=== PATIENT | male | born 1960 | race Two or more races ===

== ENCOUNTER 2024-12-17 15:17 | Emergency (ER) | payer OTHER, MEDICAID ==
[~2024-12-17] VITALS: Ht 180.3 cm; Wt 126.0 kg
--- NOTE | 2024-12-17 15:22 | ED.PDOC ---
HPI Allergic reaction HPI Comments 64 year old male presents to the ED with a chief complaint of allergic reaction onset today. Patient took his Enalapril medication around 08:30, had breakfast and went to sleep. He woke up around 12:00, noticed facial swelling as well as lips and tongue. Since 12:00, patient noticed swelling has worsen, came to ED. Denies chest pain,shortness of breath, dizziness,fever, chills, cough, congestion, nausea, vomiting. No other symptoms or modifying factors present at this time. Chief Complaint: Allergic Reaction Time Seen by MD: 15:20 Reviewed Notes: Medications, Allergies Allergies: Coded Allergies: Penicillins (Verified Allergy, Severe, 12/17/24) Information Source: Patient Mode of Arrival: Ambulatory Severity: Moderate Timing: Hours Duration: Since onset Prehospital treatment: None Location: Face, Lips, Tongue Exposed to: Medication Developed: Facial Swelling Family History Family History: Reviewed,noncontributory to illness, No family hx of Cancer, No family hx of DM, No family hx of Heart pedro, No family hx of HTN, No family hx ofKidney pedro, No family hx of Liver pedro, No family hx of Lung pedro, No family hx of Stroke Social History Smoker: Non-Smoker Alcohol: Denies ETOH Use Drugs: Denies Drug Use Lives In: Home Constitutional: denies: chills, diaphoresis, fatigue, fever, malaise, sweats, weakness, others EENTM: reports: mouth swelling; denies: blurred vision, double vision, ear bleeding, ear discharge, ear drainage, ear pain, ear ringing, eye pain, eye redness, hearing loss, mouth pain, nasal discharge, nose bleeding, nose congestion, nose pain, photophobia, tearing, throat pain, throat swelling, voice changes, others Respiratory: denies: cough, hemoptysis, orthopnea, SOB at rest, shortness of breath, SOB with excertion, stridor, wheezing, others Cardiovascular: denies: chest pain, dizzy spells, diaphoresis, Dyspnea on exertion, edema, irregular heart beat, left arm pain, lightheadedness, palpitations, PND, syncope, others Gastrointestinal: denies: abdomen distended, abdominal pain, blood streaked bowels, constipated, diarrhea, dysphagia, difficulty swallowing, hematemesis, melena, nausea, poor appetite, poor fluid intake, rectal bleeding, rectal pain, vomiting, others Genitourinary: denies: burning, dysuria, flank pain, frequency, hematuria, incontinence, penile discharge, penile sore, pain, testicle pain, testicle swelling, urgency, others Neurological: denies: dizziness, fainting, headache, left sided numbness, left sided weakness, numbness, paresthesia, pre-existing deficit, right sided numbness, right sided weakness, seizure, speech problems, tingling, tremors, weakness, others Musculoskeletal: denies: back pain, gout, joint pain, joint swelling, muscle pain, muscle stiffness, neck pain, others Integumetry: denies: bruises, change in color, change in hair/nails, dryness, laceration, lesions, lumps, rash, wounds, others Allergic/Immunocompromised: denies: Difficulty Healing, Frequent Infections, Hives, Itching, others Hematologic/Lymphatic: denies: anemia, blood clots, easy bleeding, easy bruising, swollen glands, others Endocrine: denies: excessive hunger, excessive sweating, excessive thirst, excessive urination, flushing, intolerance to cold, intolerance to heat, unexplained weight gain, unexplained weight loss, others Psychiatric: denies: anxiety, bipolar disorder, depression, hopeless, panic disorder, schizophrenia, sleepless, suicidal, others All Other Systems: Reviewed and Negative Physical Exam General Appearance: Normal HEENT: Normal ENT Inspection, Pharynx Normal, TMs Normal Neck: Full Range of Motion, Non-Tender, Normal, Normal Inspection Respiratory: Chest Non-Tender, Lungs Clear, No Accessory Muscle Use, No Respiratory Distress, Normal Breath Sounds Cardiovascular: No Edema, No JVD, No Murmur, No Gallop, Normal Peripheral Pulses, Regular Rate/Rhythm Breast Exam: Deferred Gastrointestinal: No Organomegaly, Non Tender, No Pulsatile Mass, Normal Bowel Sounds, Soft Genitalia: Deferred Pelvic: Deferred Rectal: Deferred Extremities: No calf tenderness, Normal capillary refill, Normal inspection, Normal range of motion, Non-tender, No pedal edema Musculoskeletal : Apperance: Normal Neurologic: Alert, 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 Was a procedure done?: No Differential diagnosis (all) Differential Diagnosis: Angioedema, Hypotension X-Ray, Labs, Meds, VS Vital Signs Date Time Temp Pulse Resp B/P (MAP) Pulse Ox O2 Delivery O2 Flow Rate FiO2 12/17/24 17:36 97.7 64 20 143/84 (103) 92 97.7 12/17/24 15:34 89 20 96 Room Air* 0 21 12/17/24 15:18 98.0 90 20 124/94 92 98.0 Current Medications Medications (Trade) Dose Ordered Sig/Star Route Start Time Stop Time Status Last Admin Methylprednisolone Sodium Succinate (Solu Medrol) 125 mg ONCE ONCE IV 12/17/24 15:30 12/17/24 15:31 DC 12/17/24 15:33 Famotidine (Pepcid Injection) 20 mg ONCE ONCE IV 12/17/24 15:30 12/17/24 15:31 DC 12/17/24 15:33 Diphenhydramine HCl (Benadryl Injection) 50 mg ONCE ONCE IV 12/17/24 15:30 12/17/24 15:31 DC 12/17/24 15:33 Sodium Chloride 1,000 ml @ 1,000 mls/hr Q1H ONCE IV 12/17/24 15:30 12/17/24 16:29 DC 12/17/24 15:34 Time of 1ST Reevaluation: 15:50 Reevaluation 1ST: Unchanged Patient Education/Counseling: Diagnosis, Treatment, Prognosis Family Education/Counseling: No Family Present SEPSIS Sepsis Screen Physician Orders PTPTT (12/17/24 17:59) Basic Metabolic Panel (12/17/24 17:59) Complete Blood Count (12/17/24 17:59) Chest Portable (12/17/24 17:59) Tranexamic Acid (Tranexamic Acid) (12/17/24 18:00) Vital Signs Date Time Temp Pulse Resp B/P (MAP) Pulse Ox O2 Delivery O2 Flow Rate FiO2 12/17/24 17:36 97.7 64 20 143/84 (103) 92 97.7 12/17/24 15:34 89 20 96 Room Air* 0 21 12/17/24 15:18 98.0 90 20 124/94 92 98.0 Medications Medications Dose Ordered Sig/Star Route Start Time Stop Time Status Last Admin Dose Admin Diphenhydramine HCl 50 mg ONCE ONCE IV 12/17/24 15:30 12/17/24 15:31 DC 12/17/24 15:33 Famotidine 20 mg ONCE ONCE IV 12/17/24 15:30 12/17/24 15:31 DC 12/17/24 15:33 Methylprednisolone Sodium Succinate 125 mg ONCE ONCE IV 12/17/24 15:30 12/17/24 15:31 DC 12/17/24 15:33 Sodium Chloride 1,000 ml @ 1,000 mls/hr Q1H ONCE IV 12/17/24 15:30 12/17/24 16:29 DC 12/17/24 15:34 Departure 1 Departure Time of Disposition: 18:07 (Patient with concern for angioedema versus allergic reaction. Patient empirically cover with steroids fluids and TXA for possible angioedema. Patient is protecting his airway and we will admit patient for further workup and place on oxygen.) Impression: Primary Impression: Angioedema Qualified Codes: T78.3XXA - Angioneurotic edema, initial encounter Disposition: ADMITTED INPATIENT Admit to: Tele Condition: Serious Critical Care Note Critical Care Time?: Yes Critical care comment: Angioedema Authorized and Performed by: Alyssa Szymanski MD Total critical care time: Approximately 39 minutes Due to a high probability of clinically significant, life threatening deterioration, the patient required my highest level of preparedness to intervene emergently and I personally spent this critical care time directly and personally managing the patient. This critical care time included obtaining a history; examining the patient; pulse oximetry; ordering and review of studies; arranging urgent treatment with development of a management plan; evaluation of patient's response to treatment; frequent reassessment; and, discussions with other providers. This critical care time was performed to assess and manage the high probability of imminent, life-threatening deterioration that could result in multi-organ failure. It was exclusive of separately billable procedures and treating other patients and teaching time. Please see my other sections and the rest of the note for further information on patient assessment and treatment. Stability Stability form required: No I personally scribed for ALYSSA SZYMANSKI MD ([email or web address]) on 12/17/24 at 15:22. Electronically submitted by Jackie Buchanan ([email or web address]). I personally scribed for ALYSSA SZYMANSKI MD ([email or web address]) on 12/17/24 at 15:26. Electronically submitted by Jackie Buchanan ([email or web address]). ALYSSA SZYMANSKI MD Dec 17, 2024 15:22
[2024-12-17] MEDS: FAMOTIDINE (10MG/ML) 2ML VL IV ONE (15:33)
[2024-12-17] MEDS: diphenhdrAMINE HCL 50 MG/1 ML VL IV ONE ×2 (15:33→22:31)
[2024-12-17] MEDS: methylPREDNISolone SOD SUCC 125 MG/2 ML VL IV ONE (15:33)
[2024-12-17 15:34] VITALS: PULSE 89; RESP 20; O2SAT 96
[2024-12-17] MEDS: SODIUM CHLORIDE 0.9% 1,000 ML IV ONE (15:34)
--- NOTE | 2024-12-17 18:47 | DVH ---
CHEST RADIOGRAPH Indication: sob Technique: Single frontal view of the chest was obtained COMPARISON: None FINDINGS: Lines and Tubes: None Lungs: Mild interstitial pulmonary edema. Pleura: No effusion. No pneumothorax. Cardiomediastinal contours: Mild cardiomegaly. Bones: Unremarkable IMPRESSION: 1. Mild interstitial pulmonary edema.
[2024-12-17 18:56] LABS: Hematocrit 48.4 % (41.0-53.0); Hemoglobin 16.7 g/dL (13.5-17.5); Mean Corpuscular Hemoglobin 31.1 pg (28.0-32.0); Mean Corpuscular Volume 90.0 fL (80.0-100.0); Nucleated Red Blood Cells % 0.0 %
[2024-12-17 19:00] LABS: Chloride 104 mmol/L (98-107); Potassium 4.1 mmol/L (3.5-5.1); Sodium 141 mmol/L (136-145)
[2024-12-17] MEDS: TRANEXAMIC ACID 1,000 MG in SODIUM CHL 0.9% 100 ML IV ONE (19:00)
[2024-12-17 19:01] LABS: Anion Gap 11 (5-15); Carbon Dioxide 26 mmol/L (20-31)
[2024-12-17 19:02] LABS: Calcium 9.4 mg/dL (8.7-10.4)
[2024-12-17 19:06] LABS: BUN/Creatinine Ratio 14.9 (10.0-20.0); Blood Urea Nitrogen 17 mg/dL (9-23)
[2024-12-17 19:07] LABS: Glucose 140 mg/dL (74-106)
[2024-12-17 19:15] LABS: INR 0.97 (0.9-1.15); Partial Thromboplastin Time 31.0 SEC (24.5-34.5); Prothrombin Time 10.3 sec (9.3-11.8)
[2024-12-17] MEDS ORDERED: METH4PAK PO (21:59)
[2024-12-17] MEDS ORDERED: AML5T PO (21:59)
[2024-12-17] MEDS: hydrALAZINE HCL 20 MG/ML VL IV PRN (22:31)
[2024-12-18 00:27] VITALS: BP 138/91; PULSE 72; RESP 16; TEMP 97.9; O2SAT 93
--- NOTE | 2024-12-18 19:49 | DVHINCON2 ---
DATE OF CONSULTATION: 12/17/2024 CHIEF COMPLAINT: Coming in for lip swelling. HISTORY OF PRESENT ILLNESS: This is a 64-year-old male with significant past medical history for essential hypertension, chronic back pain due to lumbar herniated disks, hypothyroidism, acid reflux, who presents to Emergency Room with a chief complaint of new onset of lip swelling. The patient says he got up this morning, took his medications to include enalapril 20 mg and noticed that his lips started swelling up. The patient was not having any tongue swelling or throat swelling or any difficulties with breathing; however, given the concern for his lip swelling, he came into the Emergency Room. The patient at that time denied again any shortness of breath or chest pain, nausea, vomiting, fevers, chills, or any palpitations. The patient says he has never had a reaction like this in the past. The patient was diagnosed with angioedema and was initiated on treatment currently. During my assessment, the patient's lips have returned back to normal. He has received Benadryl as well as IV steroids in combination with tranexamic acid in the ED. The patient says that he is back to his baseline. On evaluation, the patient says he typically runs low oxygen around 90% to 93% when he sees his primary care providers on his routine visits. The patient currently is also satting about 92-93% on room air during my assessment, not using any accessory muscles of breathing. PAST MEDICAL HISTORY: Essential hypertension, chronic back pain, hypothyroidism and acid reflux. SOCIAL HISTORY: No tobacco, no alcohol, no illicit drugs. MEDICATIONS AT HOME: Per medical reconciliation. MEDICATION ALLERGIES: PENICILLIN. REVIEW OF SYSTEMS: A 10-point review of systems was covered with the patient and was negative with exception to what was present in history of present illness. PHYSICAL EXAMINATION: VITAL SIGNS: ____, respiratory rate of 20, blood pressure 143/84, pulse ox about 92% to 93% on room air. GENERAL: Seems to be alert and oriented x 4, not in acute distress male, ____. HEENT: Normocephalic, atraumatic. Extraocular muscles intact. Pupils are equally round and reactive to light and accommodation. Mucous membranes look moist. Lips do not look swollen. Tongue does not look swollen. CARDIOVASCULAR: S1, S2 positive. Regular rate and rhythm. No rubs, gallops, or murmurs. LUNGS: Clear to auscultation bilaterally. No rhonchi or rales. ABDOMEN: Soft, nontender, and nondistended. Positive bowel sounds. No guarding or rebound. Abdominal obesity is present. EXTREMITIES: Lower extremities: No lower extremity edema, clubbing, or cyanosis. NEUROLOGIC: No focal deficits. Cranial nerves testing 2-12 overall seems to be intact. LABORATORY WORKUP: Showed a white count of 9.5, H and H of 16.7/48.4, platelet count of 317,000. INR of 0.97. Sodium of 141, potassium 4.1, chloride 104, carbon dioxide of 26, anion gap of 11, BUN of 17, creatinine 1.14, serum glucose of 140, calcium 9.4. IMAGING: Chest x-ray was completed. It shows mild interstitial pulmonary edema. DIAGNOSES: * Angioedema. * Essential hypertension. PLAN: The patient was seen in the Emergency Room for assessment and evaluation and laboratory workup and imaging was reviewed. The patient is presenting with angioedema reaction secondary to DIPAK inhibitors by taking his morning enalapril, which he has been taking for about a little over 3 years now. The patient developed lip swelling, which improved with combination of Benadryl, IV Solu-Medrol as well as tranexamic acid that was given in the Emergency Room. The patient was given an additional 50 mg of Benadryl by me prior to discharge. The patient also prior to discharge had slightly elevated blood pressures, which was controlled with a combination of clonidine with hydralazine. The patient's education about discontinuation of the DIPAK inhibitor was given. The patient's enalapril will be substituted with Norvasc 5 mg once a day. The patient is to monitor blood pressures at home daily and to present his blood pressure readings to his primary care provider for further tailoring of his blood pressure medications. Additionally, the patient does seem to have low oxygenation at baseline. He says even when he follows up with his primary care providers likely from underlying morbid obesity, the patient was taken on an ambulatory walk and his sats remained stable about 93% to 94% after ambulation. The patient educated about weight loss and discussing with his primary care provider possibly going on injectable weight loss medication to include Zepbound and Wegovy as possible. Semaglutide injectable to be discussed with his primary care provider. Finally, the patient will be given a Solu-Medrol pack to be taken for his diagnosis of angioedema. The patient was also contacted the following day. The patient says his blood pressure is actually in systolics in the 130/90 diastolic. The patient is no longer experiencing any lip swelling, breathing adequately, and he has been arranged also for his primary care provider followup. The patient otherwise again is stable from my standpoint for discharge. All recommendations were given to the patient. Medications were sent out to his pharmacy. The patient has been informed to discontinue enalapril. The patient is to return to the Emergency Room in case of any chest pain or shortness of breath, any recurrence of lip swelling, tongue swelling or throat swelling, or any difficulty with breathing, fevers, chills, or any other concerning signs or symptoms. Jameson Malave MD LM/RADHA/BRITTNI/JOSSELIN TID: [id number] RECEIPT: [id number]
== END 2024-12-18 00:37 | disposition home or self-care (01) ==
LOC: ER 15:17
DX: T78.3XXA Angioneurotic edema, initial encounter (principal); I10 Essential (primary) hypertension; G89.29 Other chronic pain; Z88.0 Allergy status to penicillin; Z79.899 Other long term (current) drug therapy
CPT/HCPCS: 36415; 71045; 80048; 85025; 85610; 85730; 96361; 96365; 96375; 96376; 99284; J0360; J1200; J2919; J3490; J7030; 99291